=== PATIENT | female | born 1980 | race Caucasian/White ===

== ENCOUNTER 2017-07-27 02:50 | Emergency (ER) | END 2017-07-27 06:06 | disposition home or self-care (01) ==

== ENCOUNTER 2018-02-08 22:10 | Inpatient (IN) | END 2018-02-11 17:32 | disposition home or self-care (01) | DRG 807 ==

== ENCOUNTER 2018-08-14 13:32 | Emergency (ER) | payer MEDICAID ==
[~2018-08-14] VITALS: Ht 157.5 cm; Wt 73.0 kg
[~2018-08-14 13:32] MED LIST: ELEC100080 PO; METO10TA92 PO
[2018-08-14 13:38] VITALS: BP 158/70; PULSE 87; RESP 18; Ht 157.5 cm; Wt 73.0 kg
[2018-08-14] MEDS ORDERED: HC30CR25 TOP (16:19)
--- NOTE | 2018-08-14 18:38 | ERD ---
ER Documentation Chief Complaint Chief Complaint rash around mouth x 1 month HPI This is a 37-year-old female patient presents emergency room with complaint of rashy skin at the corners of mouth. No other symptoms. No fevers, no nausea, vomiting. Patient denies any allergies. Patient does states she does eat a lot of Chiles. ROS All systems reviewed and are negative except as per history of present illness. Medications Home Meds Active Scripts Hydrocortisone* Topical (Hydrocortisone* Topical) 2.5%-28.3 Gm Cream..g., 1 APPLIC TOP BID for rash for 14 Days, #28.3 GM Prov:LIA RUSSELL NP 08/14/18 Electrolyte,Oral (Pedialyte) 1,000 Ml Solution, 100 ML PO Q6, #1000 ML Prov:CHICO REYES PA-C 07/02/17 Metoclopramide* (Reglan*) 10 Mg Tablet, 10 MG PO Q6 PRN for NAUSEA AND/OR VOMITING, #30 TAB Prov:CHICO REYES PA-C 07/02/17 Allergies Allergies: Coded Allergies: No Known Drug Allergies (Verified Adverse Reaction, Unknown, 08/14/18) PMhx/Soc Medical and Surgical Hx: pt denies Medical Hx, pt denies Surgical Hx History of Surgery: No Anesthesia Reaction: No Hx Neurological Disorder: No Hx Respiratory Disorders: No Hx Cardiac Disorders: No Hx Psychiatric Problems: No Hx Miscellaneous Medical Probl: No Hx Alcohol Use: No Hx Substance Use: No Hx Tobacco Use: No Smoking Status: Never smoker FmHx Family History: No diabetes, No coronary disease, No other Physical Exam Vitals Vital Signs Date Temp Pulse Resp B/P (MAP) Pulse Ox O2 O2 Flow FiO2 Time Delivery Rate 08/14/18 98.7 87 18 158/70 97 13:38 (99) Physical Exam Const: No acute distress Head: Atraumatic Eyes: Normal Conjunctiva ENT: Normal External Ears, TM clear BL, nose without discharge. Drinks pink, moist, no petechiae, no lesions. Small circular dry scaly patches to corners of mouth and lateral to right nose. Neck: Full range of motion. No meningismus. No adenopathy Resp: Clear to auscultation bilaterally Cardio: Regular rate and rhythm, no murmurs Abd: Soft, non tender, non distended. Normal bowel sounds Skin: No petechiae or rashes, no bruising Neur: Awake and alert Psych: Normal Mood and Affect Procedures/MDM PROCEDURES/MDM MDM: This is a 37-year-old female patient presents emergency room with complaint of small scaly patches to the corners of her mouth. States this has been going on for several months. She has not attempted to treat it. Possibly could be contact dermatitis due to eating a lot of Chilies. May also be a eczema type rash. There is no redness, swelling, drainage, fevers, sign of cellulitis. Patient has been described as a hydrocortisone cream and instructed to follow-up with her primary care provider as she may need referral for dermatology. She was instructed to return to the emergency room immediately with any signs and symptoms of infection or worsening of condition. DISPOSITION and PLAN: RX: Hydrocortisone cream The patient has been discharge home to follow-up with community physician. Departure Diagnosis: Primary Impression: Contact dermatitis and eczema Condition: Stable Patient Instructions: Contact Dermatitis Ref[facility] Usted se soliman hecho un examen mdico de control que le indica que no est en olivia condicin que requiera tratamiento urgente en el Departamento de Emergencia. Un estudio ms profundo y el tratamiento de kothari condicin pueden esperar sin ningn riesgo hasta que usted sea atendida/o en el consultorio de kothari mdico o olivia clnica. Es responsabilidad suya arreglar olivia cindy para el seguimiento del elyssa. MANEJO DE CONDICIONES NO URGENTES EN EL FUTURO 1) Si usted tiene un mdico de atencin primaria: Usted debera llamar a kothari mdico de atencin primaria antes de venir al departamento de emergencia. Despus de las horas de consultorio, kothari doctor o kothari asociado/a est disponible por telfono. El mdico o enfermero de ad en el servicio telefnico puede asesorarle por eliot medio para atender el problema, o elyssa contrario se puede programar olivia cindy. 2) Si usted no tiene un mdico de atencin primaria: Llame al mdico o clnica de referencia que aparece abajo cynthia las horas de consultorio para hacer olivia cindy para que le vean. CLINICAS: [facility] [phone] [facility] [phone] [facility] [phone] [place] [address] [phone] [place] [address] [phone] [facility]. [phone] [address] [facility]. [facility] () Usted se soliman hecho un examen mdico de control que le indica que no est en olivia condicin que requiera tratamiento urgente en el Departamento de Emergencia. Un estudio ms profundo y el tratamiento de kothari condicin pueden esperar sin ningn riesgo hasta que usted sea atendida/o en el consultorio de kothari mdico o olivia clnica. Es responsabilidad suya arreglar olivia cindy para el seguimiento del elyssa. MANEJO DE CONDICIONES NO URGENTES EN EL FUTURO 1) Si usted tiene un mdico de atencin primaria: Usted debera llamar a kothari mdico de atencin primaria antes de venir al departamento de emergencia. Despus de las horas de consultorio, kothari doctor o kothari asociado/a est disponible por telfono. El mdico o enfermero de ad en el servicio telefnico puede asesorarle por eliot medio para atender el problema, o elyssa contrario se puede programar olivia cindy. 2) Si usted no tiene un mdico de atencin primaria: Llame al mdico o condado institucions de referencia que aparece abajo cynthia las horas de consultorio para hacer olivia cindy para que le vean. SI USTED NO PUEDE PAGAR PARA BULMARO UN MEDICO puede ir a: [facility] [address] [place] [address] [facility] [address] [place] [address] [facility] [address] [place] [address] [facility] [address] [place] [address] Additional Instructions: Thank you very much for allowing us to participate in your care. Your health and safety is our top priority at [facility]. Call your primary care doctor TOMORROW for an appointment during the next 2-4 days and bring all the information and medications prescribed. Have prescriptions filled and follow precisely the directions on the label. If the symptoms get worse and your provider is unavailable, return to the Emergency Department immediately. LIA RUSSELL NP Aug 14, 2018 18:38
== END 2018-08-14 16:30 | disposition home or self-care (01) ==
LOC: FTE 13:32
DX: L25.9 Unspecified contact dermatitis, unspecified cause (principal)
CPT/HCPCS: 99282